=== PATIENT | male | born 1960 | race African-American/Black ===

== ENCOUNTER 2017-04-08 23:27 | Emergency (ER) | payer SELFPAY ==
[~2017-04-08] VITALS: Ht 180.3 cm; Wt 68.0 kg
[2017-04-08 23:35] VITALS: BP_SYST 148
--- NOTE | 2017-04-08 23:35 | NUR ---
Patient to ER bed 4 to gown for evaluation. Side rails up. Report given to TYE SMITH.
--- NOTE | 2017-04-08 23:41 | NUR ---
Pt brought in by BLS transport in stable condition. Pt c/o lower back pain 01/17. Pt was recently seen at [facility] for same chief complaint. Pt stated that he has a hx of HIV but currently not taking any meds because he is homeless and unable to afford meds. Pt able to ambulate to restroom w/ a steady gait. -sob -chest pain. No acute distress noted at this time, will continue to monitor
--- NOTE | 2017-04-09 00:14 | NUR ---
ER at bedside examining patient.
[2017-04-09] MEDS ORDERED: IBUPROFEN 800 MG TABLET PO ONE (00:30)
[2017-04-09 00:55] VITALS: BP_SYST 148
--- NOTE | 2017-04-09 00:55 | NUR ---
Patient given written and verbal discharge instructions and verbalizes understanding. ER MD PERSAUD discussed with patient the results and treatment provided. Patient in stable condition. ID arm band removed. Rx of MOTRIN given. Patient educated on pain management and to follow up with PMD. Pain Scale 0/10. Opportunity for questions provided and answered. Patient refused to sign discharge papers and left discharge packet on the gurney.
== END 2017-04-09 00:55 | disposition home or self-care (01) ==
LOC: SED 23:27
DX: G89.29 Other chronic pain (principal); M54.9 Dorsalgia, unspecified; Z76.5 Malingerer [conscious simulation]
CPT/HCPCS: 99282